=== PATIENT | female | born 1975 | race Caucasian/White ===

== ENCOUNTER 2018-12-10 00:10 | Emergency (ER) | payer MEDICAID ==
[~2018-12-10] VITALS: Ht 162.6 cm; Wt 128.3 kg
[~2018-12-10 00:10] MED LIST: METF10002 PO; SITA50TA PO
[2018-12-10 00:18] VITALS: BP 127/84
--- NOTE | 2018-12-10 11:53 | NUR ---
PATIENT CALLED AT APPROXIMATELY 1151 12/10 STATED MEDICARE DOES NOT COVER DOXYCLICINE (ABX SHE WAS D/C WITH) SPOKE WITH DR. BAUM. NEW RX FOR BACTRIM ORDERED. VERBALLY CALLED IN RX AT [facility] [place] . NOTIFIED PATIENT.
--- NOTE | 2018-12-10 11:54 | NUR ---
PATIENT VERBALLY CONFIMRED NKDA.
== END 2018-12-10 02:42 | disposition home or self-care (01) ==
LOC: ED 02:30
DX: L02.01 Cutaneous abscess of face (principal); E11.9 Type 2 diabetes mellitus without complications
CPT/HCPCS: 99283